=== PATIENT | female | born 1945 | race Native Hawaiian/Other Pacific Islander ===

== ENCOUNTER 2016-11-30 14:32 | Outpatient (CLI) | payer OTHER | END 2016-11-30 21:29 | disposition home or self-care (01) | LOC: RAD 14:32 | DX: J44.1 Chronic obstructive pulmonary disease with (acute) exacerbation (principal) ==

== ENCOUNTER 2016-12-19 12:14 | Outpatient (CLI) | payer OTHER | END 2016-12-19 19:45 | disposition home or self-care (01) | LOC: RESP 12:14 | DX: Z01.810 Encounter for preprocedural cardiovascular examination (principal) | CPT/HCPCS: 93005 ==

== ENCOUNTER 2017-01-26 13:28 | Outpatient (CLI) | payer OTHER ==
[2017-01-26 14:28] LABS: PLATELET COUNT 236 K/uL (152-353)
[2017-01-26 14:34] LABS: POTASSIUM 3.9 mmol/L (3.6-5.2)
== END 2017-01-26 19:17 | disposition home or self-care (01) ==
LOC: LABW 13:28
PROVIDERS: Podiatrist Foot & Ankle Surgery
DX: Z01.818 Encounter for other preprocedural examination (principal); Z01.811 Encounter for preprocedural respiratory examination; Z79.899 Other long term (current) drug therapy; M85.871 Other specified disorders of bone density and structure, right ankle and foot; Z51.81 Encounter for therapeutic drug level monitoring; E55.9 Vitamin D deficiency, unspecified
CPT/HCPCS: 36415; 80048; 82306; 85027; 93005

== ENCOUNTER 2017-07-12 13:37 | Outpatient (CLI) | payer OTHER | END 2017-07-12 14:40 | disposition home or self-care (01) | LOC: RAD 13:37 | DX: J44.9 Chronic obstructive pulmonary disease, unspecified (principal) ==

== ENCOUNTER 2017-10-30 14:28 | Outpatient (CLI) | payer OTHER | END 2017-10-30 21:43 | disposition home or self-care (01) | LOC: LABW 14:28 | DX: J44.9 Chronic obstructive pulmonary disease, unspecified (principal) | CPT/HCPCS: 36415; 82785; 86003 ==

== ENCOUNTER 2017-11-05 10:56 | Outpatient (CLI) | payer OTHER | END 2017-11-05 12:00 | disposition home or self-care (01) | LOC: RESP 10:56 | DX: J44.9 Chronic obstructive pulmonary disease, unspecified (principal) | CPT/HCPCS: 94664 ==

== ENCOUNTER 2018-01-04 13:36 | Outpatient (CLI) | payer OTHER | END 2018-01-04 19:40 | disposition home or self-care (01) | LOC: RAD 13:36 | DX: M06.4 Inflammatory polyarthropathy (principal) ==

== ENCOUNTER 2018-01-15 12:31 | Outpatient (CLI) | payer OTHER ==
[2018-01-15 13:22] LABS: PLATELET COUNT 256 K/uL (152-353)
[2018-01-15 15:50] LABS: POTASSIUM 3.3 mmol/L (3.6-5.2)
== END 2018-01-15 19:56 | disposition home or self-care (01) ==
LOC: LABW 12:31
PROVIDERS: Internal Medicine
DX: N18.4 Chronic kidney disease, stage 4 (severe) (principal); R53.83 Other fatigue; Z79.899 Other long term (current) drug therapy; Z51.81 Encounter for therapeutic drug level monitoring
CPT/HCPCS: 36415; 80053; 81000; 82043; 82330; 82552; 82570; 82746; 83735; 83970; 84100; 84155; 84439; 84443; 84550; 85027; 85651

== ENCOUNTER 2018-01-23 14:56 | Outpatient (CLI) | payer OTHER | END 2018-01-23 21:49 | disposition home or self-care (01) | LOC: RAD 14:56 | DX: M25.552 Pain in left hip (principal) ==

== ENCOUNTER 2018-01-29 13:07 | Outpatient (CLI) | payer OTHER ==
[~2018-01-29] VITALS: Ht 157.5 cm; Wt 56.7 kg
[2018-01-29 13:05] VITALS: BP 136/70; TEMP 98
[2018-01-29 15:00] VITALS: BP 134/66; TEMP 98
== END 2018-01-29 15:00 | disposition home or self-care (01) ==
LOC: INF 13:07
DX: N18.4 Chronic kidney disease, stage 4 (severe) (principal); D64.89 Other specified anemias
CPT/HCPCS: 96365; Q0138

== ENCOUNTER 2018-02-12 12:50 | Outpatient (CLI) | payer OTHER ==
[2018-02-12 13:20] LABS: PLATELET COUNT 347 K/uL (152-353)
[2018-02-12 14:09] LABS: POTASSIUM 4.5 mmol/L (3.6-5.2)
== END 2018-02-12 22:56 | disposition home or self-care (01) ==
LOC: LABW 12:50
PROVIDERS: Internal Medicine
DX: N18.4 Chronic kidney disease, stage 4 (severe) (principal)
CPT/HCPCS: 36415; 80053; 81000; 82043; 82330; 82570; 83735; 84100; 84155; 85027

== ENCOUNTER 2018-02-13 12:51 | Outpatient (CLI) | payer OTHER ==
[~2018-02-13] VITALS: Ht 162.6 cm; Wt 57.2 kg
== END 2018-02-13 18:14 | disposition home or self-care (01) ==
LOC: INF 12:51
DX: N18.4 Chronic kidney disease, stage 4 (severe) (principal); D64.89 Other specified anemias
CPT/HCPCS: 96365; Q0138

== ENCOUNTER 2018-04-09 13:59 | Outpatient (CLI) | payer OTHER | END 2018-04-09 18:21 | disposition home or self-care (01) | LOC: CT 13:59 | DX: M79.605 Pain in left leg (principal) | CPT/HCPCS: 36415; 82565; 84520 ==

== ENCOUNTER 2018-06-14 13:08 | Outpatient (CLI) | payer OTHER ==
[2018-06-14 13:37] LABS: POTASSIUM 4.4 mmol/L (3.6-5.2)
== END 2018-06-14 19:48 | disposition home or self-care (01) ==
LOC: LABW 13:08
PROVIDERS: Internal Medicine Rheumatology
DX: M06.4 Inflammatory polyarthropathy (principal); D64.89 Other specified anemias
CPT/HCPCS: 36415; 80048; 81000; 83516; 85651; 86140; 86255

== ENCOUNTER 2018-08-05 14:09 | Outpatient (CLI) | payer OTHER | END 2018-08-05 19:51 | disposition home or self-care (01) | LOC: MAMMO 14:09 → RAD 14:09 → MAMMO 19:51 | DX: Z13.820 Encounter for screening for osteoporosis (principal); Z12.31 Encounter for screening mammogram for malignant neoplasm of breast; Z78.0 Asymptomatic menopausal state ==

== ENCOUNTER 2018-08-09 15:28 | Outpatient (CLI) | payer OTHER ==
[2018-08-09 17:38] LABS: PLATELET COUNT 270 K/uL (152-353)
[2018-08-09 17:52] LABS: POTASSIUM 4.4 mmol/L (3.6-5.2)
== END 2018-08-09 22:21 | disposition home or self-care (01) ==
LOC: LABW 15:28
PROVIDERS: Internal Medicine Rheumatology
DX: M06.4 Inflammatory polyarthropathy (principal); R70.0 Elevated erythrocyte sedimentation rate; R79.89 Other specified abnormal findings of blood chemistry; Z79.899 Other long term (current) drug therapy; H16.223 Keratoconjunctivitis sicca, not specified as Sjogren's, bilateral
CPT/HCPCS: 80053; 82784; 82785; 85027; 85651; 86140; 86160; 86162; 86225; 86480; 86704; 86706; 86803; 87350

== ENCOUNTER 2018-08-14 15:32 | Outpatient (CLI) | payer OTHER | END 2018-08-14 21:07 | disposition home or self-care (01) | LOC: CT 15:32 | DX: Q66.89 Other specified congenital deformities of feet (principal) ==

== ENCOUNTER 2018-10-16 15:41 | Outpatient (CLI) | payer OTHER | END 2018-10-16 20:22 | disposition home or self-care (01) | LOC: RAD 15:41 | DX: J44.1 Chronic obstructive pulmonary disease with (acute) exacerbation (principal) ==

== ENCOUNTER 2018-11-06 12:41 | Outpatient (CLI) | payer OTHER | END 2018-11-06 19:27 | disposition home or self-care (01) | LOC: LABW 12:41 | DX: M85.871 Other specified disorders of bone density and structure, right ankle and foot (principal) | CPT/HCPCS: 36415; 82306 ==

== ENCOUNTER 2019-03-26 12:46 | Outpatient (CLI) | payer OTHER ==
[2019-03-26 13:28] LABS: PLATELET COUNT 278 K/uL (152-353)
[2019-03-26 14:16] LABS: POTASSIUM 4.6 mmol/L (3.6-5.2)
== END 2019-03-26 22:29 | disposition home or self-care (01) ==
LOC: LABW 12:46
PROVIDERS: Nurse Practitioner
DX: M79.605 Pain in left leg (principal); R53.82 Chronic fatigue, unspecified; N18.4 Chronic kidney disease, stage 4 (severe)
CPT/HCPCS: 36415; 80053; 82607; 82728; 83540; 83550; 85027

== ENCOUNTER 2019-03-27 13:58 | Outpatient (CLI) | payer OTHER | END 2019-03-27 23:12 | disposition home or self-care (01) | LOC: LABW 13:58 | DX: M85.872 Other specified disorders of bone density and structure, left ankle and foot (principal) | CPT/HCPCS: 36415; 82306 ==

== ENCOUNTER 2019-03-31 10:23 | Outpatient (CLI) | payer OTHER ==
[2019-03-31 11:05] LABS: POTASSIUM 4.2 mmol/L (3.6-5.2)
== END 2019-03-31 22:45 | disposition home or self-care (01) ==
LOC: LABW 10:23
PROVIDERS: Nurse Practitioner
DX: N28.89 Other specified disorders of kidney and ureter (principal); M1A.0790 Idiopathic chronic gout, unspecified ankle and foot, without tophus (tophi); R74.8 Abnormal levels of other serum enzymes; R79.0 Abnormal level of blood mineral
CPT/HCPCS: 36415; 80048; 80076; 83735; 84550

== ENCOUNTER 2019-05-23 00:53 | Outpatient (CLI) | payer OTHER ==
[2019-05-23] MEDS ORDERED: AMLO2.5T PO (06:34)
[2019-05-23] MEDS ORDERED: LIPITOR40 MG PO (06:35)
[2019-05-23] MEDS ORDERED: BREO ELLIPTA 101 INH (06:36)
[2019-05-23] MEDS ORDERED: FURO20TA67 PO (06:37)
[2019-05-23] MEDS ORDERED: GABA300C2 PO (06:38)
[2019-05-23] MEDS ORDERED: HYDR10TA47 PO (06:39)
[2019-05-23] MEDS ORDERED: HYDR200T3 PO (06:41)
[2019-05-23] MEDS ORDERED: METOPROLOL25 M1 PO (06:43)
[2019-05-23] MEDS ORDERED: MONT10TA PO (06:44)
[2019-05-23] MEDS ORDERED: OLME20TA5 PO (06:45)
[2019-05-23] MEDS ORDERED: PANTOPRAZOLE 40MG TA PO (06:46)
[2019-05-23] MEDS ORDERED: TIZANIDINE HYDRO4 MG PO (06:47)
[2019-05-23] MEDS ORDERED: VENLAFAXINE75 M2 PO (06:48)
== END 2019-05-23 01:06 | disposition short-term general hospital (02) ==
LOC: AMB 00:53
DX: R07.89 Other chest pain (principal); R06.02 Shortness of breath
CPT/HCPCS: A0425; A0429

== ENCOUNTER 2019-05-23 01:15 | Observation (INO) | payer OTHER ==
[~2019-05-23] VITALS: Ht 157.5 cm; Wt 57.8 kg
[2019-05-23] VITALS (11 sets, daily range): BP systolic 71–141; BP diastolic 32–69; TEMP 98–98.2; Ht 157.5 cm; Wt 57.8 kg
[2019-05-23 02:39] LABS: PLATELET COUNT 181 K/uL (152-353)
[2019-05-23 02:45] LABS: SODIUM 127 mmol/L (136-145)
[2019-05-23] MEDS ORDERED: AMLO2.5T PO (06:34)
[2019-05-23] MEDS ORDERED: LIPITOR40 MG PO (06:35)
[2019-05-23] MEDS ORDERED: BREO ELLIPTA 101 INH (06:36)
[2019-05-23] MEDS ORDERED: FURO20TA67 PO (06:37)
[2019-05-23] MEDS ORDERED: GABA300C2 PO (06:38)
[2019-05-23] MEDS ORDERED: HYDR10TA47 PO (06:39)
[2019-05-23] MEDS ORDERED: HYDR200T3 PO (06:41)
[2019-05-23] MEDS ORDERED: METOPROLOL25 M1 PO (06:43)
[2019-05-23] MEDS ORDERED: MONT10TA PO (06:44)
[2019-05-23] MEDS ORDERED: OLME20TA5 PO (06:45)
[2019-05-23] MEDS ORDERED: PANTOPRAZOLE 40MG TA PO (06:46)
[2019-05-23] MEDS ORDERED: TIZANIDINE HYDRO4 MG PO (06:47)
[2019-05-23] MEDS ORDERED: VENLAFAXINE75 M2 PO (06:48)
[2019-05-23 10:17] LABS: PLATELET COUNT 193 K/uL (152-353)
[2019-05-23 14:10] LABS: POTASSIUM 4.9 mmol/L (3.6-5.2)
[2019-05-24 00:05] VITALS: BP 144/75; TEMP 98.1
[2019-05-24 04:00] VITALS: BP 94/48; TEMP 97.7
[2019-05-24 05:37] LABS: PLATELET COUNT 197 K/uL (152-353)
[2019-05-24 05:55] LABS: POTASSIUM 3.9 mmol/L (3.6-5.2)
[2019-05-24 08:00] VITALS: BP 129/69; TEMP 97.6
== END 2019-05-24 09:42 | disposition home or self-care (01) ==
LOC: ED 01:15 → MED/SURG 03:00
PROVIDERS: Internal Medicine; ADMIT Family Medicine
DX: I13.0 Hypertensive heart and chronic kidney disease with heart failure and stage 1 through stage 4 chronic kidney disease, or unspecified chronic kidney disease (principal); N18.4 Chronic kidney disease, stage 4 (severe); I50.33 Acute on chronic diastolic (congestive) heart failure; I95.89 Other hypotension; R06.02 Shortness of breath; R06.09 Other forms of dyspnea; D64.89 Other specified anemias; E78.00 Pure hypercholesterolemia, unspecified; J44.9 Chronic obstructive pulmonary disease, unspecified; R07.89 Other chest pain; R79.89 Other specified abnormal findings of blood chemistry
CPT/HCPCS: 80048; 80053; 81000; 82150; 82550; 83690; 83880; 84484; 85027; 85379; 93005; 96360; 96375; 99220; 99285; G0378; J2930

== ENCOUNTER 2019-08-15 08:59 | Outpatient (CLI) | payer OTHER ==
[~2019-08-15 08:59] MED LIST: AMLO2.5T PO; BREO ELLIPTA 101 INH; FURO20TA67 PO; GABA300C2 PO; HYDR10TA47 PO; HYDR200T3 PO; LIPITOR40 MG PO; METOPROLOL25 M1 PO; MONT10TA PO; OLME20TA5 PO; PANTOPRAZOLE 40MG TA PO; TIZANIDINE HYDRO4 MG PO; VENLAFAXINE75 M2 PO
== END 2019-08-15 22:19 | disposition home or self-care (01) ==
LOC: RAD 08:59
DX: M85.89 Other specified disorders of bone density and structure, multiple sites (principal)

== ENCOUNTER 2019-08-27 14:15 | Outpatient (CLI) | payer OTHER | END 2019-08-27 23:02 | disposition home or self-care (01) | LOC: RAD 14:15 | DX: H16.223 Keratoconjunctivitis sicca, not specified as Sjogren's, bilateral (principal); M06.09 Rheumatoid arthritis without rheumatoid factor, multiple sites; M32.8 Other forms of systemic lupus erythematosus; R70.0 Elevated erythrocyte sedimentation rate; Z79.899 Other long term (current) drug therapy ==

== ENCOUNTER 2019-11-10 09:09 | Outpatient (CLI) | payer OTHER ==
[2019-11-10] MEDS ORDERED: PRAMIPEXOLE0.25 MG PO (10:15)
[2019-11-10] MEDS ORDERED: QUET25TA2 PO (10:15)
[2019-11-10] MEDS ORDERED: METO-837 PO (10:16)
[2019-11-10] MEDS ORDERED: GRALISE600 MG PO (10:16)
[2019-11-10] MEDS ORDERED: HYDROXYZINE HYD25 MG PO (10:17)
[2019-11-10] MEDS ORDERED: QUET100T2 PO (10:17)
[2019-11-10] MEDS ORDERED: PROM25TA52 PO (10:17)
[2019-11-10] MEDS ORDERED: BUT/APAP/CA3 PO (10:18)
[2019-11-10] MEDS ORDERED: OLME20TA5 PO (10:18)
[2019-11-10] MEDS ORDERED: XOPENEX HF45 MCG/ACT INH (10:19)
== END 2019-11-10 09:19 | disposition short-term general hospital (02) ==
LOC: AMB 09:09
DX: R94.31 Abnormal electrocardiogram [ECG] [EKG] (principal); I95.89 Other hypotension
CPT/HCPCS: A0425; A0427

== ENCOUNTER 2019-11-10 09:21 | Emergency (ER) | payer OTHER ==
[~2019-11-10] VITALS: Ht 157.5 cm; Wt 55.8 kg
[2019-11-10] MEDS ORDERED: PRAMIPEXOLE0.25 MG PO (10:15)
[2019-11-10] MEDS ORDERED: QUET25TA2 PO (10:15)
[2019-11-10] MEDS ORDERED: METO-837 PO (10:16)
[2019-11-10] MEDS ORDERED: GRALISE600 MG PO (10:16)
[2019-11-10] MEDS ORDERED: PROM25TA52 PO (10:17)
[2019-11-10] MEDS ORDERED: QUET100T2 PO (10:17)
[2019-11-10] MEDS ORDERED: HYDROXYZINE HYD25 MG PO (10:17)
[2019-11-10] MEDS ORDERED: BUT/APAP/CA3 PO (10:18)
[2019-11-10] MEDS ORDERED: OLME20TA5 PO (10:18)
[2019-11-10] MEDS ORDERED: XOPENEX HF45 MCG/ACT INH (10:19)
[2019-11-10 10:43] LABS: PLATELET COUNT 222 K/uL (152-353)
[2019-11-10 11:02] LABS: POTASSIUM 5.5 mmol/L (3.6-5.2); SODIUM 127 mmol/L (136-145)
[2019-11-10 12:05] VITALS: TEMP 98.5
[2019-11-10 12:40] VITALS: BP 147/102
== END 2019-11-10 12:40 | disposition home or self-care (01) ==
LOC: ED 09:24
PROVIDERS: Emergency Medicine
PROC: 0T9B70Z Drainage of Bladder with Drainage Device, Via Natural or Artificial Opening (ICD-10-PCS; principal; 2019-11-10)
DX: E87.1 Hypo-osmolality and hyponatremia (principal); E86.0 Dehydration; N18.9 Chronic kidney disease, unspecified; I50.9 Heart failure, unspecified; W18.39XA Other fall on same level, initial encounter; Y92.89 Other specified places as the place of occurrence of the external cause
CPT/HCPCS: 51702; 80053; 81000; 83605; 83735; 83880; 84484; 85027; 87040; 93005; 96360; 96375; 99284; J1265; J2060

== ENCOUNTER 2019-11-10 12:53 | Outpatient (CLI) | payer OTHER ==
[~2019-11-10 12:53] MED LIST changes: +BUT/APAP/CA3 PO; +GRALISE600 MG PO; +HYDROXYZINE HYD25 MG PO; +METO-837 PO; +PRAMIPEXOLE0.25 MG PO; +PROM25TA52 PO; +QUET100T2 PO; +QUET25TA2 PO; +XOPENEX HF45 MCG/ACT INH
== END 2019-11-10 14:08 | disposition short-term general hospital (02) ==
LOC: AMB 12:53
DX: E86.0 Dehydration (principal); N18.9 Chronic kidney disease, unspecified; I95.89 Other hypotension; R94.31 Abnormal electrocardiogram [ECG] [EKG]
CPT/HCPCS: A0425; A0427

== ENCOUNTER 2020-02-04 10:46 | Outpatient (CLI) | payer OTHER ==
[2020-02-04 11:18] LABS: PLATELET COUNT 257 K/uL (152-353)
[2020-02-04 11:30] LABS: POTASSIUM 4.4 mmol/L (3.6-5.2)
== END 2020-02-04 19:21 | disposition home or self-care (01) ==
LOC: LABW 10:46
PROVIDERS: Internal Medicine
DX: N18.4 Chronic kidney disease, stage 4 (severe) (principal)
CPT/HCPCS: 36415; 80053; 81000; 82306; 83735; 83970; 84100; 85027

== ENCOUNTER 2020-03-16 11:00 | Outpatient (CLI) | payer OTHER ==
[2020-03-16 12:06] LABS: PLATELET COUNT 280 K/uL (152-353)
[2020-03-16 12:29] LABS: POTASSIUM 4.2 mmol/L (3.6-5.2)
== END 2020-03-16 19:26 | disposition home or self-care (01) ==
LOC: LABW 11:00
PROVIDERS: Nurse Practitioner
DX: N18.4 Chronic kidney disease, stage 4 (severe) (principal); D50.8 Other iron deficiency anemias; R39.198 Other difficulties with micturition
CPT/HCPCS: 36415; 80053; 81000; 82306; 82728; 83540; 83550; 83735; 83970; 84100; 85027; 87086; 87088

== ENCOUNTER 2020-05-21 13:30 | Outpatient (CLI) | payer OTHER | END 2020-05-21 19:36 | disposition home or self-care (01) | LOC: RAD 13:30 | DX: M06.09 Rheumatoid arthritis without rheumatoid factor, multiple sites (principal) ==

== ENCOUNTER 2020-05-26 13:18 | Outpatient (CLI) | payer OTHER | END 2020-05-26 21:33 | disposition home or self-care (01) | LOC: RAD 13:18 | DX: H16.223 Keratoconjunctivitis sicca, not specified as Sjogren's, bilateral (principal); M06.09 Rheumatoid arthritis without rheumatoid factor, multiple sites; M32.8 Other forms of systemic lupus erythematosus; M79.7 Fibromyalgia; M85.89 Other specified disorders of bone density and structure, multiple sites | CPT/HCPCS: 81000 ==

== ENCOUNTER 2020-06-18 11:41 | Outpatient (CLI) | payer OTHER ==
[2020-06-18 12:25] LABS: POTASSIUM 3.5 mmol/L (3.6-5.2)
[2020-06-18 12:45] LABS: PLATELET COUNT 320 K/uL (152-353)
[2020-06-18 12:58] LABS: PARTIAL THROMBOPLASTIN TIME 26.4 SECONDS (24.5-33.6)
== END 2020-06-18 20:01 | disposition home or self-care (01) ==
LOC: LABW 11:41
PROVIDERS: Orthopaedic Surgery
DX: M54.40 Lumbago with sciatica, unspecified side (principal); M51.36 Other intervertebral disc degeneration, lumbar region
CPT/HCPCS: 36415; 80048; 81000; 85027; 85610; 85730; 87070; 93005

== ENCOUNTER 2020-08-03 10:58 | Outpatient (CLI) | payer OTHER ==
[2020-08-03 11:22] LABS: PLATELET COUNT 280 K/uL (152-353)
[2020-08-03 11:38] LABS: POTASSIUM 4.2 mmol/L (3.6-5.2)
== END 2020-08-03 19:12 | disposition home or self-care (01) ==
LOC: LABW 10:58
PROVIDERS: Internal Medicine
DX: N18.4 Chronic kidney disease, stage 4 (severe) (principal); D50.8 Other iron deficiency anemias
CPT/HCPCS: 36415; 80053; 82306; 82728; 83540; 83550; 83735; 83970; 84100; 85027

== ENCOUNTER 2020-10-20 11:30 | Outpatient (CLI) | payer OTHER | END 2020-10-20 19:58 | disposition home or self-care (01) | LOC: LABW 11:30 | PROVIDERS: ATTEND Internal Medicine | DX: I11.0 Hypertensive heart disease with heart failure (principal); I50.9 Heart failure, unspecified; E78.49 Other hyperlipidemia; D64.89 Other specified anemias | CPT/HCPCS: 36415; 80061; 82728; 84443 ==

== ENCOUNTER 2020-11-05 14:31 | Outpatient (CLI) | payer OTHER ==
[2020-11-05 14:53] LABS: PLATELET COUNT 353 K/uL (152-353)
[2020-11-05 15:26] LABS: POTASSIUM 4.5 mmol/L (3.6-5.2)
== END 2020-11-05 19:42 | disposition home or self-care (01) ==
LOC: LABW 14:31
PROVIDERS: ATTEND Internal Medicine
DX: N18.4 Chronic kidney disease, stage 4 (severe) (principal); D50.8 Other iron deficiency anemias
CPT/HCPCS: 36415; 80053; 82306; 82728; 83540; 83550; 83735; 83970; 84100; 85027

== ENCOUNTER 2020-12-09 10:24 | Outpatient (CLI) | payer OTHER ==
[2020-12-09 11:07] LABS: PLATELET COUNT 370 K/uL (152-353)
[2020-12-09 11:11] LABS: POTASSIUM 4.8 mmol/L (3.6-5.2)
[2020-12-09 11:24] LABS: PARTIAL THROMBOPLASTIN TIME 24.3 SECONDS (24.5-33.6)
== END 2020-12-09 20:44 | disposition home or self-care (01) ==
LOC: RAD 10:24
PROVIDERS: ATTEND Orthopaedic Surgery
DX: Z01.810 Encounter for preprocedural cardiovascular examination (principal); Z01.811 Encounter for preprocedural respiratory examination; Z01.812 Encounter for preprocedural laboratory examination; Z79.01 Long term (current) use of anticoagulants; M54.5 Low back pain; M51.36 Other intervertebral disc degeneration, lumbar region
CPT/HCPCS: 36415; 80048; 81000; 85027; 85610; 85730; 87070; 93005

== ENCOUNTER 2021-01-17 13:35 | Outpatient (CLI) | payer OTHER ==
[2021-01-17 14:18] LABS: PLATELET COUNT 396 K/uL (152-353)
[2021-01-17 14:25] LABS: POTASSIUM 3.8 mmol/L (3.6-5.2)
[2021-01-17 15:45] LABS: PARTIAL THROMBOPLASTIN TIME 25.9 SECONDS (24.5-33.6)
== END 2021-01-17 23:16 | disposition home or self-care (01) ==
LOC: LABW 13:35
PROVIDERS: ATTEND Orthopaedic Surgery
DX: Z01.810 Encounter for preprocedural cardiovascular examination (principal); Z01.811 Encounter for preprocedural respiratory examination; Z01.812 Encounter for preprocedural laboratory examination; Z11.59 Encounter for screening for other viral diseases; M54.5 Low back pain; M51.36 Other intervertebral disc degeneration, lumbar region; Z79.01 Long term (current) use of anticoagulants
CPT/HCPCS: 36415; 80048; 81000; 85027; 85610; 85730; 87070; 87077; 87185; 87186; 87635; G2023; U0003

== ENCOUNTER 2021-01-24 14:01 | Outpatient (CLI) | payer OTHER ==
[2021-01-24 14:27] LABS: PLATELET COUNT 341 K/uL (152-353)
[2021-01-24 14:47] LABS: POTASSIUM 4.3 mmol/L (3.6-5.2)
== END 2021-01-24 19:27 | disposition home or self-care (01) ==
LOC: LABW 14:01
PROVIDERS: ATTEND Internal Medicine
DX: N18.4 Chronic kidney disease, stage 4 (severe) (principal); D50.8 Other iron deficiency anemias
CPT/HCPCS: 36415; 80053; 82306; 82728; 83540; 83550; 83735; 83970; 84100; 85027

== ENCOUNTER 2021-05-06 12:28 | Outpatient (CLI) | payer OTHER | END 2021-05-06 16:00 | disposition home or self-care (01) | LOC: LABW 12:28 | PROVIDERS: ATTEND Internal Medicine | DX: N18.4 Chronic kidney disease, stage 4 (severe) (principal); D50.8 Other iron deficiency anemias | CPT/HCPCS: 82306; 82607; 82746; 83970 ==

== ENCOUNTER 2021-10-06 12:46 | Outpatient (CLI) | payer OTHER | END 2021-10-06 19:21 | disposition home or self-care (01) | LOC: LABW 12:46 | PROVIDERS: ATTEND Orthopaedic Surgery | DX: M54.59 Other low back pain (principal); M51.36 Other intervertebral disc degeneration, lumbar region; G89.29 Other chronic pain | CPT/HCPCS: 36415; 82565; 84520 ==

== ENCOUNTER 2021-10-20 14:43 | Outpatient (CLI) | payer OTHER ==
[2021-10-20 15:07] LABS: PLATELET COUNT 224 K/uL (152-353)
[2021-10-20 15:24] LABS: POTASSIUM 4.4 mmol/L (3.6-5.2)
== END 2021-10-20 19:14 | disposition home or self-care (01) ==
LOC: LABW 14:43
PROVIDERS: ATTEND Internal Medicine
DX: J44.9 Chronic obstructive pulmonary disease, unspecified (principal); N18.4 Chronic kidney disease, stage 4 (severe); E78.2 Mixed hyperlipidemia; F51.01 Primary insomnia; I12.9 Hypertensive chronic kidney disease with stage 1 through stage 4 chronic kidney disease, or unspecified chronic kidney disease
CPT/HCPCS: 36415; 80053; 80061; 81000; 84443; 85027

== ENCOUNTER 2021-11-14 10:45 | Outpatient (CLI) | payer OTHER ==
[2021-11-14 11:57] LABS: PLATELET COUNT 279 K/uL (152-353)
[2021-11-14 14:24] LABS: POTASSIUM 4.1 mmol/L (3.6-5.2)
== END 2021-11-14 18:54 | disposition home or self-care (01) ==
LOC: LABW 10:45
PROVIDERS: ATTEND Nurse Practitioner Family
DX: M06.09 Rheumatoid arthritis without rheumatoid factor, multiple sites (principal); M32.8 Other forms of systemic lupus erythematosus; M47.816 Spondylosis without myelopathy or radiculopathy, lumbar region; M81.0 Age-related osteoporosis without current pathological fracture; M85.89 Other specified disorders of bone density and structure, multiple sites; Z79.899 Other long term (current) drug therapy; N18.4 Chronic kidney disease, stage 4 (severe); D50.8 Other iron deficiency anemias
CPT/HCPCS: 36415; 80053; 82306; 82607; 82728; 82746; 83540; 83550; 83735; 83970; 84100; 85027

== ENCOUNTER 2021-12-22 10:37 | Outpatient (CLI) | payer OTHER ==
[2021-12-22 11:18] LABS: PLATELET COUNT 283 K/uL (152-353)
[2021-12-22 11:26] LABS: POTASSIUM 4.1 mmol/L (3.6-5.2)
[2021-12-22 11:37] LABS: PARTIAL THROMBOPLASTIN TIME 24.6 SECONDS (24.5-33.6)
== END 2021-12-22 21:21 | disposition home or self-care (01) ==
LOC: LABW 10:37
PROVIDERS: ATTEND Orthopaedic Surgery
DX: Z01.810 Encounter for preprocedural cardiovascular examination (principal); Z01.811 Encounter for preprocedural respiratory examination; Z01.812 Encounter for preprocedural laboratory examination; M54.50 Low back pain, unspecified; M51.36 Other intervertebral disc degeneration, lumbar region; U07.1 COVID-19; Z79.01 Long term (current) use of anticoagulants; Z79.899 Other long term (current) drug therapy
CPT/HCPCS: 36415; 80048; 81000; 83036; 85027; 85610; 85652; 85730; 87070

== ENCOUNTER 2022-01-09 12:10 | Outpatient (CLI) | payer OTHER ==
[2022-01-09 12:44] LABS: PLATELET COUNT 280 K/uL (152-353)
[2022-01-09 13:13] LABS: POTASSIUM 4.5 mmol/L (3.6-5.2)
== END 2022-01-09 18:54 | disposition home or self-care (01) ==
LOC: LABW 12:10
PROVIDERS: ATTEND Internal Medicine
DX: N18.4 Chronic kidney disease, stage 4 (severe) (principal); D50.8 Other iron deficiency anemias
CPT/HCPCS: 36415; 80053; 82306; 82607; 82728; 82746; 83540; 83550; 83735; 83970; 84100; 85027

== ENCOUNTER 2022-01-30 11:11 | Outpatient (CLI) | payer OTHER ==
[2022-01-30 11:32] LABS: PLATELET COUNT 209 K/uL (152-353)
[2022-01-30 11:53] LABS: POTASSIUM 4.5 mmol/L (3.6-5.2)
== END 2022-01-30 19:39 | disposition home or self-care (01) ==
LOC: LABW 11:11
PROVIDERS: ATTEND Internal Medicine
DX: N18.4 Chronic kidney disease, stage 4 (severe) (principal); D50.8 Other iron deficiency anemias; E53.8 Deficiency of other specified B group vitamins
CPT/HCPCS: 36415; 80053; 82306; 82607; 82728; 82746; 83540; 83550; 83735; 83970; 84100; 85027

== ENCOUNTER 2022-03-10 12:03 | Outpatient (CLI) | payer OTHER ==
[2022-03-10 12:44] LABS: PLATELET COUNT 218 K/uL (152-353)
[2022-03-10 13:50] LABS: POTASSIUM 3.7 mmol/L (3.6-5.2)
== END 2022-03-10 20:34 | disposition home or self-care (01) ==
LOC: LABW 12:03
PROVIDERS: ATTEND Internal Medicine
DX: N18.4 Chronic kidney disease, stage 4 (severe) (principal); D50.8 Other iron deficiency anemias
CPT/HCPCS: 36415; 80053; 82306; 82607; 82728; 82746; 83540; 83550; 83735; 83970; 84100; 85027

== ENCOUNTER 2022-04-24 12:58 | Outpatient (CLI) | payer OTHER ==
[2022-04-24 13:41] LABS: PLATELET COUNT 234 K/uL (152-353)
[2022-04-24 13:52] LABS: PARTIAL THROMBOPLASTIN TIME 24.3 SECONDS (24.5-33.6)
[2022-04-24 14:00] LABS: POTASSIUM 4.1 mmol/L (3.6-5.2)
== END 2022-04-24 19:03 | disposition home or self-care (01) ==
LOC: RAD 12:58
PROVIDERS: ATTEND Orthopaedic Surgery
DX: Z01.810 Encounter for preprocedural cardiovascular examination (principal); Z01.811 Encounter for preprocedural respiratory examination; Z01.812 Encounter for preprocedural laboratory examination; M51.36 Other intervertebral disc degeneration, lumbar region; M54.59 Other low back pain; Z79.01 Long term (current) use of anticoagulants
CPT/HCPCS: 36415; 80048; 81000; 85027; 85610; 85730; 87070; 93005

== ENCOUNTER 2022-07-07 09:30 | Outpatient (CLI) | payer OTHER | END 2022-07-07 19:05 | disposition home or self-care (01) | LOC: CT 09:30 | PROVIDERS: ATTEND Orthopaedic Surgery | DX: M79.672 Pain in left foot (principal); M25.572 Pain in left ankle and joints of left foot ==

== ENCOUNTER 2022-07-19 16:21 | Emergency (ER) | payer OTHER ==
[~2022-07-19] VITALS: Ht 157.5 cm; Wt 55.8 kg
[2022-07-19 17:50] LABS: PLATELET COUNT 179 K/uL (152-353)
[2022-07-19 18:02] LABS: POTASSIUM 3.5 mmol/L (3.6-5.2)
[2022-07-19 20:50] VITALS: BP 107/63
== END 2022-07-19 21:00 | disposition short-term general hospital (02) ==
LOC: ED 16:21
PROVIDERS: Emergency Medicine Emergency Medical Services
PROC: 0T9B70Z Drainage of Bladder with Drainage Device, Via Natural or Artificial Opening (ICD-10-PCS; principal; 2022-07-19)
DX: N17.8 Other acute kidney failure (principal); I95.89 Other hypotension; Z11.52 Encounter for screening for COVID-19; R10.84 Generalized abdominal pain
CPT/HCPCS: 36600; 80053; 81002; 82150; 82805; 83605; 83690; 83735; 84484; 85027; 87635; 93005; 96360; 96361; 96365; 96366; 99285; J1265; J3490; U0003

== ENCOUNTER 2022-09-14 09:38 | Outpatient (CLI) | payer OTHER ==
[2022-09-14 10:24] LABS: PLATELET COUNT 233 K/uL (152-353)
[2022-09-14 11:04] LABS: POTASSIUM 3.7 mmol/L (3.6-5.2)
== END 2022-09-14 23:09 | disposition home or self-care (01) ==
LOC: MRI 09:38
PROVIDERS: ATTEND Physician Assistant Surgical
DX: I12.9 Hypertensive chronic kidney disease with stage 1 through stage 4 chronic kidney disease, or unspecified chronic kidney disease (principal); N18.4 Chronic kidney disease, stage 4 (severe); D50.8 Other iron deficiency anemias
CPT/HCPCS: 36415; 80053; 82306; 82607; 82728; 82746; 83540; 83550; 83735; 83970; 84100; 85027

== ENCOUNTER 2022-10-24 09:07 | Outpatient (CLI) | payer OTHER ==
[~2022-10-24] VITALS: Ht 157.5 cm; Wt 54.9 kg
[2022-10-24 09:10] VITALS: BP 154/63; TEMP 97.3
[2022-10-24 12:05] VITALS: BP 108/55; TEMP 97.4
== END 2022-10-24 19:36 | disposition home or self-care (01) ==
LOC: INF 09:07
PROVIDERS: ATTEND Internal Medicine
DX: D50.9 Iron deficiency anemia, unspecified (principal); I10 Essential (primary) hypertension
CPT/HCPCS: 96365; J1756

== ENCOUNTER 2022-11-07 09:06 | Outpatient (CLI) | payer OTHER ==
[~2022-11-07] VITALS: Ht 157.5 cm; Wt 52.2 kg
[2022-11-07 09:19] VITALS: BP 150/69; TEMP 97.7
[2022-11-07 09:42] LABS: POTASSIUM 3.9 mmol/L (3.6-5.2)
[2022-11-07 09:51] LABS: PLATELET COUNT 273 K/uL (152-353)
[2022-11-07 12:04] VITALS: BP 145/49; TEMP 97.2
== END 2022-11-07 19:02 | disposition home or self-care (01) ==
LOC: INF 09:06
PROVIDERS: ATTEND Internal Medicine
DX: D50.9 Iron deficiency anemia, unspecified (principal); I10 Essential (primary) hypertension
CPT/HCPCS: 36415; 80053; 80061; 84443; 85027; 96365; 96366; J1756

== ENCOUNTER 2023-01-09 10:06 | Outpatient (CLI) | payer OTHER | END 2023-01-09 21:57 | disposition home or self-care (01) | LOC: CT 10:06 | PROVIDERS: ATTEND Physician Assistant Surgical | DX: M46.1 Sacroiliitis, not elsewhere classified (principal) ==

== ENCOUNTER 2024-01-07 11:00 | Outpatient (CLI) | payer OTHER | END 2024-01-07 19:21 | disposition home or self-care (01) | LOC: RAD 11:00 | PROVIDERS: ATTEND Nurse Practitioner Family | DX: E55.9 Vitamin D deficiency, unspecified (principal); M06.09 Rheumatoid arthritis without rheumatoid factor, multiple sites; M32.10 Systemic lupus erythematosus, organ or system involvement unspecified; M85.89 Other specified disorders of bone density and structure, multiple sites; Z79.899 Other long term (current) drug therapy ==